=== PATIENT | female | born 1995 | race Hispanic/Latino ===

== ENCOUNTER 2024-06-23 08:33 | Emergency (ER) | payer SELFPAY ==
[~2024-06-23] VITALS: Ht 160 cm; Wt 77.1 kg
[2024-06-23 08:51] VITALS: PULSE 82; RESP 18; TEMP 97.8; O2SAT 100
[2024-06-23] MEDS ORDERED: AZITHROMYCIN250 MG PO (09:01)
[2024-06-23] MEDS ORDERED: PREDNISONE20 MG PO (09:01)
[2024-06-23] MEDS ORDERED: ALBUTEROL 90 MCG/ACT INHALER INH ONE (09:05)
[2024-06-23] MEDS: ALBUTEROL 90 MCG/ACT INHALER INH PRN (09:07)
== END 2024-06-23 10:16 | disposition home or self-care (01) ==
LOC: ER 08:45
DX: R05.9 Cough, unspecified (principal); J06.9 Acute upper respiratory infection, unspecified; H66.92 Otitis media, unspecified, left ear
CPT/HCPCS: 99282